=== PATIENT | male | born 1975 | race Caucasian/White ===

== ENCOUNTER 2024-09-10 14:08 | Emergency (ER) | payer OTHER ==
--- NOTE | 2024-09-10 14:26 | ED ---
General Adult HPI - General Source: patient, RN notes reviewed Mode of arrival: ambulatory Limitations: no limitations <Jair Garces - Last Filed: 09/10/24 14:25> - General Source: patient, RN notes reviewed, old records reviewed Mode of arrival: ambulatory Limitations: no limitations - History of Present Illness -: days(s) Location: chest Radiation: non-radiation Severity scale (1-10): 3 Quality: aching, sharp Consistency: intermittent Improves with: none Worsens with: none Associated Symptoms: chest pain, shortness of breath (With exertion) Treatments Prior to Arrival: none <Maxi Michel - Last Filed: 09/10/24 17:11> - General Stated complaint: Chest Pain Time Seen by Provider: 09/10/24 14:20 - History of Present Illness Initial comments: Quick note 48-year-old male presents emergency department with chief complaint of chest pain. Patient states has had symptoms for days. Patient states chest pain shortness of breath does have a history of hypertension no prior cardiac catheter cardiac stents. Patient denies any leg pain or leg swelling. (Jair Garces) This is a 48 male to the ER for evaluation of chest pain patient is on a few days of chest pain currently especially with shortness of breath on exertion, shortness of breath with position changes. Patient has history of high blood pressure prior stress test have been normal, no travel history no sick contacts no fevers cough congestion runny nose (Maxi Michel) - Related Data Allergies Allergy/AdvReac Type Severity Reaction Status Date / Time Penicillins Allergy Anaphylaxis Verified 09/10/24 16:51 Review of Systems ROS Other: All systems not noted in ROS Statement are negative. <Jari Garces - Last Filed: 09/10/24 14:25> ROS Other: All systems not noted in ROS Statement are negative. <Maxi Michel - Last Filed: 09/10/24 17:11> ROS Statement: Those systems with pertinent positive or pertinent negative responses have been documented in the HPI. General Exam <Jair Garces - Last Filed: 09/10/24 14:25> General appearance: alert, in no apparent distress Head exam: Present: atraumatic, normocephalic, normal inspection Eye exam: Present: normal appearance, PERRL, EOMI. Absent: scleral icterus, conjunctival injection, periorbital swelling ENT exam: Present: normal exam, mucous membranes moist Neck exam: Present: normal inspection. Absent: tenderness, meningismus, lymphadenopathy Respiratory exam: Present: normal lung sounds bilaterally. Absent: respiratory distress, wheezes, rales, rhonchi, stridor Cardiovascular Exam: Present: regular rate, normal rhythm, normal heart sounds. Absent: systolic murmur, diastolic murmur, rubs, gallop, clicks GI/Abdominal exam: Present: soft, normal bowel sounds. Absent: distended, tenderness, guarding, rebound, rigid Extremities exam: Present: normal inspection, full ROM, normal capillary refill. Absent: tenderness, pedal edema, joint swelling, calf tenderness Back exam: Present: normal inspection Neurological exam: Present: alert, oriented X3, CN II-XII intact Psychiatric exam: Present: normal affect, normal mood Skin exam: Present: warm, dry, intact, normal color. Absent: rash <Maxi Michel - Last Filed: 09/10/24 17:11> - General Exam Comments Initial Comments: Visual Physical Exam Vital signs reviewed General: Well-appearing, nontoxic, no acute distress. Head: Normocephalic, atraumatic Eyes: PERRLA, EOMI ENT: Airway patent Chest: Nonlabored breathing Skin: No visual rash, normal skin tone Neuro: Alert and oriented 3 Musculoskeletal: No gross abnormalities (Jair Garces) Course <Maxi Michel - Last Filed: 09/10/24 17:11> Vital Signs 09/10/24 14:25 Temperature 98.6 F Pulse Rate 69 Respiratory 20 Rate Blood Pressure 136/79 O2 Sat by Pulse 97 Oximetry - Reevaluation(s) Reevaluation #1: 09/10/24 17:10 Medical records reviewed (Maxi Michel) Reevaluation #2: 09/10/24 17:10 Patient symptoms unchanged, (Maxi Michel) Reevaluation #3: 09/10/24 17:10 Patient informed of results questions answered (Maxi Michel) Reevaluation #5: Differential Chest Pain: Stable Angina, Unstable Angina, STEMI, NSTEMI Aortic Dissection, Pneumothorax, Musculoskeletal, Esophageal Spasm GERD, Cholecystitis, Pancreatitis, Zoster, this is not meant to be an all-inclusive list. (Maxi Michel) EKG Findings - EKG Comments: EKG Findings:: EKG is sinus 71 MA 143 QRS 94 QTc 373 - EKG Results: EKG: interpreted by ERMD <Maxi Michel - Last Filed: 09/10/24 17:11> Medical Decision Making <Jair Garces - Last Filed: 09/10/24 14:25> - Lab Data Result diagrams: 09/10/24 14:38 09/10/24 14:38 - EKG Data -: EKG Interpreted by Me - Radiology Data Radiology results: report reviewed (Chest x-ray is negative for acute disease), image reviewed <Maxi Michel - Last Filed: 09/10/24 17:11> - Medical Decision Making I completed the quick note portion of this chart signed Jair Garces PA-C (Jair Garces) 48 male with chest pain left-sided chest pain history of high blood pressure. Patient has negative testing here in the ER including D-dimer troponin and normal EKG. Chest x-ray is negative patient is in no distress no hypoxia no d ifficulty breathing, patient can be discharged home (Maxi Michel) - Lab Data Lab Results 09/10/24 09/10/24 09/10/24 Range/Units 14:38 14:38 14:38 WBC 9.0 (3.8-10.6) k/uL RBC 5.02 (4.30-5.90) m/uL Hgb 15.4 (13.0-17.5) gm/dL Hct 46.1 (39.0-53.0) % MCV 91.9 (80.0-100.0) fL MCH 30.7 (25.0-35.0) pg MCHC 33.4 (31.0-37.0) g/dL RDW 12.5 (11.5-15.5) % Plt Count 363 (150-450) k/uL MPV 6.7 Neutrophils % 53 % Lymphocytes % 34 % Monocytes % 6 % Eosinophils % 5 % Basophils % 1 % Neutrophils # 4.8 (1.3-7.7) k/uL Lymphocytes # 3.0 (1.0-4.8) k/uL Monocytes # 0.6 (0-1.0) k/uL Eosinophils # 0.4 (0-0.7) k/uL Basophils # 0.1 (0-0.2) k/uL PT 10.6 (10.0-12.5) sec INR 1.0 (<1.2) APTT 23.8 (22.0-30.0) sec D-Dimer 0.36 (<0.60) mg/L FEU Sodium 140 (137-145) mmol/L Potassium 4.3 (3.5-5.1) mmol/L Chloride 104 (98-107) mmol/L Carbon Dioxide 27 (22-30) mmol/L Anion Gap 9 mmol/L BUN 16 (9-20) mg/dL Creatinine 0.98 (0.66-1.25) mg/dL Est GFR (CKD-EPI)AfAm >90 (>60 ml/min/1.73 sqM) Est GFR (CKD-EPI)NonAf >90 (>60 ml/min/1.73 sqM) Glucose 103 H (74-99) mg/dL Calcium 9.9 (8.4-10.2) mg/dL Magnesium 1.7 (1.6-2.3) mg/dL Total Bilirubin 0.4 (0.2-1.3) mg/dL AST 20 (17-59) U/L ALT 24 (4-49) U/L Alkaline Phosphatase 98 (38-126) U/L Troponin I (0.000-0.034) ng/mL NT-Pro-B Natriuret Pep <20 pg/mL Total Protein 7.0 (6.3-8.2) g/dL Albumin 4.7 (3.5-5.0) g/dL 09/10/24 Range/Units 14:38 WBC (3.8-10.6) k/uL RBC (4.30-5.90) m/uL Hgb (13.0-17.5) gm/dL Hct (39.0-53.0) % MCV (80.0-100.0) fL MCH (25.0-35.0) pg MCHC (31.0-37.0) g/dL RDW (11.5-15.5) % Plt Count (150-450) k/uL MPV Neutrophils % % Lymphocytes % % Monocytes % % Eosinophils % % Basophils % % Neutrophils # (1.3-7.7) k/uL Lymphocytes # (1.0-4.8) k/uL Monocytes # (0-1.0) k/uL Eosinophils # (0-0.7) k/uL Basophils # (0-0.2) k/uL PT (10.0-12.5) sec INR (<1.2) APTT (22.0-30.0) sec D-Dimer (<0.60) mg/L FEU Sodium (137-145) mmol/L Potassium (3.5-5.1) mmol/L Chloride (98-107) mmol/L Carbon Dioxide (22-30) mmol/L Anion Gap mmol/L BUN (9-20) mg/dL Creatinine (0.66-1.25) mg/dL Est GFR (CKD-EPI)AfAm (>60 ml/min/1.73 sqM) Est GFR (CKD-EPI)NonAf (>60 ml/min/1.73 sqM) Glucose (74-99) mg/dL Calcium (8.4-10.2) mg/dL Magnesium (1.6-2.3) mg/dL Total Bilirubin (0.2-1.3) mg/dL AST (17-59) U/L ALT (4-49) U/L Alkaline Phosphatase (38-126) U/L Troponin I <0.012 (0.000-0.034) ng/mL NT-Pro-B Natriuret Pep pg/mL Total Protein (6.3-8.2) g/dL Albumin (3.5-5.0) g/dL Disposition <Jair Garces - Last Filed: 09/10/24 14:25> Is patient prescribed a controlled substance at d/c from ED?: No Time of Disposition: 17:00 <Maxi Michel - Last Filed: 09/10/24 17:11> Clinical Impression: Atypical chest pain, Chest pain Disposition: HOME SELF-CARE Condition: Good Instructions (If sedation given, give patient instructions): Chest Pain (ED) Referrals: Nonstaff,Physician [REFERRING] - 1-2 days
[2024-09-10 14:45] LABS: Basophils # (A) 0.1 k/uL (0-0.2); Basophils % (A) 1 %; Eosinophils # (A) 0.4 k/uL (0-0.7); Eosinophils % (A) 5 %; HCT 46.1 % (39.0-53.0); HGB 15.4 gm/dL (13.0-17.5); Lymphocytes % (A) 34 %; MCH 30.7 pg (25.0-35.0); MCHC 33.4 g/dL (31.0-37.0); MCV 91.9 fL (80.0-100.0); Mean Platelet Volume 6.7; Monocytes # (A) 0.6 k/uL (0-1.0); Monocytes % (A) 6 %; Neutrophils # (A) 4.8 k/uL (1.3-7.7); Neutrophils % (A) 53 %; Platelet Count 363 k/uL (150-450); RBC 5.02 m/uL (4.30-5.90); RDW 12.5 % (11.5-15.5)
[2024-09-10 14:56] LABS: ALT 24 U/L (4-49); AST 20 U/L (17-59); African American GFR (CKD) >90 (>60 ml/min/1.73 sqM); Albumin 4.7 g/dL (3.5-5.0); Alkaline Phosphatase 98 U/L (38-126); Anion Gap 9 mmol/L; Blood Urea Nitrogen 16 mg/dL (9-20); Calcium 9.9 mg/dL (8.4-10.2); Carbon Dioxide 27 mmol/L (22-30); Chloride 104 mmol/L (98-107); Glucose 103 mg/dL (74-99); Magnesium 1.7 mg/dL (1.6-2.3); Non-African American GFR(CKD) >90 (>60 ml/min/1.73 sqM); Potassium 4.3 mmol/L (3.5-5.1); Sodium 140 mmol/L (137-145); Total Bilirubin 0.4 mg/dL (0.2-1.3)
--- NOTE | 2024-09-10 14:58 | XR ---
EXAMINATION TYPE: XR chest 2V DATE OF EXAM: 09/10/2024 CLINICAL HISTORY: Chest pain TECHNIQUE: Frontal and lateral views of the chest are obtained. COMPARISON: None FINDINGS: There is no focal air space opacity, pleural effusion, or pneumothorax seen. The cardiac silhouette size is within normal limits. The osseous structures are intact. IMPRESSION: No acute process. [facility], , 09/10/2024 2:56 PM
[2024-09-10 15:04] LABS: NT-Pro-B-Type Natriuretic Pept <20 pg/mL
[2024-09-10 15:11] LABS: Partial Thromboplastin Time 23.8 sec (22.0-30.0); Prothrombin Time 10.6 sec (10.0-12.5)
[2024-09-10] MEDS: SODIUM CHLORIDE 0.9% 500 ML 500 ML IV STA (17:26)
[2024-09-10] MEDS: KETOROLAC 15 MG/ML 1 ML VIAL IVP STA (17:26)
[2024-09-10 17:36] VITALS: BP 147/98; PULSE 75; RESP 19; TEMP 97.9
== END 2024-09-10 17:37 | disposition home or self-care (01) ==
LOC: EC 14:08
DX: R07.89 Other chest pain (principal); Z88.0 Allergy status to penicillin
CPT/HCPCS: 36415; 93005; 85379; 83880; 80053; 83735; 84484; 85025; 85610; 85730; 71046; 99285; 96374; J1885